=== PATIENT | female | born 1955 | race Caucasian/White ===

== ENCOUNTER 2019-04-14 06:46 | Day surgery (SDC) | payer BC, OTHER ==
[2019-04-14] MEDS ORDERED: Dextrose 5%-Lactated Ringers 1,000 ML IV SCH (07:00)
[2019-04-14] MEDS ORDERED: Glycopyrrolate 0.2 MG/ML 2 ML SDV IVPUSH ONE (09:02)
[2019-04-14] MEDS ORDERED: Midazolam 1 MG/ML 2 ML SDV ONE (09:04)
[2019-04-14] MEDS ORDERED: fentaNYL 100 MCG/2 ML SDV ONE (09:04)
[2019-04-14] MEDS ORDERED: Propofol 200 MG/20 ML SDV ONE (09:04)
--- NOTE | 2019-04-15 14:54 | OR ---
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 POSTOPERATIVE DIAGNOSES: 1. Progressive intolerance of laparoscopic adjustable gastric band associated with marked esophageal dilation and esophageal bile accumulation. 2. Mild antral gastritis. OPERATIVE PROCEDURE: Upper gastrointestinal endoscopy with antral biopsies for CLOtest. ANESTHESIA: IV sedation. INDICATION FOR PROCEDURE: The patient is status post previous laparoscopic adjustable gastric band placement. Over the past few months, perhaps more than a year, she has had progressive problems with heartburn and occasional aspiration of esophageal contents. To evaluate the situation, the patient is undergoing upper GI endoscopy with biopsies and/or dilation as indicated. Potential risks including bleeding and perforation were discussed, and the patient wishes to proceed. DETAILS OF PROCEDURE: The patient was taken to the operating room and placed in a left lateral decubitus position. IV sedation was administered, after which the upper GI endoscope was passed orally through the length of the esophagus and into the stomach with retroflexion view of the fundus, thereafter through the pyloric channel to the junction of the third and fourth portions of the duodenum. The findings included quite striking esophageal dilation. Within the esophagus, there was some pooled bile and probable salivary content. This was evacuated at this point. As one passed down toward the area of the distal esophagus, this was quite reddened and friable. As one passed into the segment of the stomach above the band imprint, this was also fairly edematous. The band imprint was present but no obstruction was noted, and the band had previously been emptied of any fluid, so there was no obstruction at this point. Within the stomach, there was some patchy redness in the prepyloric area consistent with some mild antral gastritis, and visualized portion of the pyloric channel and duodenum were unremarkable. At this point, biopsies were obtained from the antrum and sent for CLOtest for H. pylori. Minimal bleeding from the biopsy site was seen. Procedure was then concluded. The patient was taken to the recovery room in satisfactory condition. This is a case with some urgency in terms of needing to remove the band to avoid esophageal and pulmonary complications. At this point, the patient wishes to not undergo conversion to another bariatric procedure, such as gastric bypass, but simple removal of band, and we will obtain prior authorization for that procedure with the insurance carrier. Jacky Clifford MD /[id number]
== END 2019-04-14 10:35 | disposition home or self-care (01) ==
LOC: JP.SDS 06:46
PROVIDERS: ATTEND Surgery
DX: K95.09 Other complications of gastric band procedure (principal); K29.70 Gastritis, unspecified, without bleeding; K21.9 Gastro-esophageal reflux disease without esophagitis; I10 Essential (primary) hypertension; E78.5 Hyperlipidemia, unspecified; K90.9 Intestinal malabsorption, unspecified; E03.9 Hypothyroidism, unspecified; E11.9 Type 2 diabetes mellitus without complications; E66.9 Obesity, unspecified; Z68.35 Body mass index [BMI] 35.0-35.9, adult; Z79.82 Long term (current) use of aspirin; Z79.899 Other long term (current) drug therapy; Z79.84 Long term (current) use of oral hypoglycemic drugs; Z88.8 Allergy status to other drugs, medicaments and biological substances
CPT/HCPCS: 43239; 87081; J2250; J2704; J3010; J3490; J7042

== ENCOUNTER 2019-07-10 06:00 | Day surgery (SDC) | payer OTHER ==
[2019-07-10] MEDS ORDERED: Celecoxib 200 MG Cap PO ONE (06:15)
[2019-07-10] MEDS ORDERED: Scopolamine 1.5 MG Transdermal Patch TRDERM SCH (06:15)
[2019-07-10] MEDS ORDERED: Acetaminophen 500 MG Tab PO ONE (06:15)
[2019-07-10] MEDS ORDERED: Gabapentin 300 MG Cap PO ONE (06:15)
[2019-07-10] MEDS ORDERED: Dextrose 5%-Lactated Ringers 1,000 ML IV SCH ×3 (06:30→10:15)
[2019-07-10] MEDS ORDERED: Bupivacaine 0.5%/EPINEPHrine 1:200,000 50 ML MDV ONE (07:06)
[2019-07-10] MEDS ORDERED: cefOXitin 2 GM Vial ONE (07:06)
[2019-07-10] MEDS ORDERED: Rocuronium 50 MG/5 ML Vial ONE (07:09)
[2019-07-10] MEDS ORDERED: Dexamethasone 4 MG/ML SDV ONE (07:09)
[2019-07-10] MEDS ORDERED: Propofol 200 MG/20 ML SDV ONE (07:09)
[2019-07-10] MEDS ORDERED: Neostigmine Methylsulfate 1 MG/ML 5 ML Syringe ONE (07:09)
[2019-07-10] MEDS ORDERED: fentaNYL 250 MCG/5 ML SDV ONE ×2 (07:09→08:07)
[2019-07-10] MEDS ORDERED: Glycopyrrolate 0.2 MG/ML 5 ML MDV ONE (07:09)
[2019-07-10] MEDS ORDERED: Ondansetron 4 MG/2 ML SDV ONE (07:09)
[2019-07-10] MEDS ORDERED: Succinylcholine 200 MG/10 ML MDV ONE (07:09)
[2019-07-10] MEDS ORDERED: ceFAZolin 2 GM in Premix Bag 1 BAG IV ONE (07:30)
[2019-07-10] MEDS ORDERED: Ropivacaine 50 ML, dexAMETHasone 8 MG, EPINEPHrine 0.4 MG, Sodium Chloride 0.9% 27.6 ML NERVRT SCH ×4 (09:00)
[2019-07-10] MEDS ORDERED: fentaNYL 100 MCG/2 ML SDV IVPUSH ONE (09:13)
[2019-07-10] MEDS ORDERED: hydrOXYzine HCl 100 MG/2 ML SDV IM ONE (09:14)
[2019-07-10] MEDS ORDERED: Insulin Lispro 100 Unit/ML 3 ML KwikPen SUBCUT ONE (09:15)
[2019-07-10] MEDS ORDERED: Insulin Lispro 100 Unit/ML 3 ML KwikPen SUBCUT PRN (10:08)
[2019-07-10] MEDS ORDERED: SCOPOLAMINE PATCH CHECK TOP SCH (10:08)
[2019-07-10] MEDS ORDERED: HYDROmorphone 1 MG/ML Syringe IV PRN (10:08)
[2019-07-10] MEDS ORDERED: Labetalol 20 MG/4 ML Syringe IVPUSH PRN (10:08)
[2019-07-10] MEDS ORDERED: Metoclopramide 10 MG/2 ML SDV IVPUSH PRN (10:08)
[2019-07-10] MEDS ORDERED: HYDROmorphone 0.5 MG/0.5 ML Syringe IVPUSH PRN (10:08)
[2019-07-10] MEDS ORDERED: Ondansetron 4 MG/2 ML SDV IVPUSH PRN (10:08)
[2019-07-10] MEDS ORDERED: hydrOXYzine HCl 100 MG/2 ML SDV IM PRN (10:08)
[2019-07-10] MEDS ORDERED: diphenhydrAMINE 50 MG/ML SDV IVPUSH PRN (10:08)
[2019-07-10] MEDS ORDERED: MVI, Adult with Vitamin K 10 ML, Thiamine 200 MG, Chromium/Copper/Mang/Selen/Zn 1 ML in... IV SCH ×4 (12:00)
[2019-07-10] MEDS ORDERED: Pantoprazole 40 MG Vial IVPUSH SCH (12:00)
[2019-07-10] MEDS: Gabapentin 250 MG/5 ML Solution ML 470 ML Bottle PO SCH ×2 (14:44→20:35)
[2019-07-10] MEDS: Acetaminophen 325 MG Tab PO SCH ×2 (14:44→20:35)
[2019-07-10] MEDS: ceFAZolin 2 GM in Premix Bag 1 BAG IV SCH ×2 (15:59→22:40)
[2019-07-10] MEDS: Heparin Sodium 5,000 Units/ML Vial SUBCUT SCH (16:01)
[2019-07-10] MEDS: HYDROmorphone 2 MG Tab PO PRN (17:51)
[2019-07-10] MEDS ORDERED: buPROPion 150 MG Tab.SR PO SCH (21:00)
[2019-07-10] MEDS ORDERED: traZODone 50 MG Tab PO SCH (21:00)
[2019-07-11] MEDS ORDERED: Iopamidol 612 MG/ML 50 ML SDV PO STA (02:11)
--- NOTE | 2019-07-11 02:54 | CRLCR ---
HISTORY: Removal of gastric lap band. TECHNIQUE: Oral contrast was administered and 2 spot films obtained of the lower chest upper abdomen. COMPARISON: No prior. FINDINGS: No gastric lap band is seen on these images. There is no contrast extravasation or gastric obstruction. IMPRESSION: No contrast extravasation or gastric obstruction seen on these 2 views. Dictated by Santo Monique MD @ Jul 14 2019 1:41PM Signed by Dr. Santo Monique @ Jul 14 2019 1:43PM
[2019-07-11] MEDS: Acetaminophen 325 MG Tab PO SCH ×2 (02:55→07:28)
[2019-07-11] MEDS: HYDROmorphone 2 MG Tab PO PRN (02:58)
[2019-07-11] MEDS: Heparin Sodium 5,000 Units/ML Vial SUBCUT SCH (03:02)
[2019-07-11] MEDS ORDERED: Levothyroxine 100 MCG Tab PO SCH (07:30)
[2019-07-11] MEDS ORDERED: Celecoxib 200 MG Cap PO SCH (08:00)
[2019-07-11] MEDS ORDERED: Losartan 50 MG Tab PO SCH (09:00)
[2019-07-11] MEDS ORDERED: Citalopram 20 MG Tab PO SCH (09:00)
[2019-07-11] MEDS ORDERED: Ezetimibe 10 MG Tab PO SCH (09:00)
[2019-07-11] MEDS ORDERED: Aspirin 81 MG Tab.EC PO SCH (09:00)
[2019-07-11] MEDS ORDERED: Alogliptin 12.5 MG TABLET PO SCH (09:00)
[2019-07-11] MEDS ORDERED: Hydrochlorothiazide 25 MG Tab PO SCH (09:00)
[2019-07-11] MEDS ORDERED: metFORMIN 500 MG Tab PO SCH (09:00)
--- NOTE | 2019-07-12 02:12 | DISCH ---
ADMISSION DIAGNOSIS: Intolerance to laparoscopic gastric band. DISCHARGE DIAGNOSIS: Removal of laparoscopic gastric band system, partial gastrectomy for intolerance to laparoscopic gastric band. Portion of the stomach deserialized secondary to takedown of band. HISTORY: Natasha Bo is a 63-year-old female with intolerance to laparoscopic gastric band system. After preoperative evaluation and discussion of possible risks and possible complications, she wished to proceed with surgical procedure. HOSPITAL COURSE: Natasha is a 63-year-old female, who had a lap band removed on 07/10/2019. She had no operative complications and was able to be discharged to home on 07/11/2019. PHYSICAL EXAMINATION: GENERAL: Natasha is a 63-year-old female, height is 5 feet 7 inches, weight is 234 pounds, BMI 36.8. VITAL SIGNS: TPR is 95.7, 71, 18, blood pressure is 138/80. HEENT: Negative. NECK: Supple. HEART: Regular rate and rhythm. LUNGS: Clear. ABDOMEN: Dressing is dry and intact. Abdominal binder is on. EXTREMITIES: Without peripheral edema. DISPOSITION: Discharged to home. CONDITION: Stable and improving. FOLLOWUP: Followup appointment with Meron Stewart PA-C, on 07/15/2019 at 8:30 a.m. at [facility]. She will need to see her primary care provider to have her sutures removed in 10 to 12 days from today. DISCHARGE MEDICATIONS: Home medication: 1. Tylenol 650 mg oral q.6 hours p.r.n. pain. 2. Celebrex 200 mg oral daily, #14. 3. Dilaudid 2 mg every 4 hours p.r.n. pain, #42. 4. Levothyroxine 100 mcg oral before breakfast. 5. Losartan/hydrochlorothiazide 100/25 mg 1 tablet oral daily. 6. Norvasc 2.5 mg oral every evening. 7. Lipitor 80 mg oral at bedtime. 8. Wellbutrin SR 150 mg oral every 12 hours. 9. Prednisone 20 mg p.r.n. cough. 10.Aspirin 81 mg oral daily. 11.Citalopram 40 mg oral every evening. 12.Vitamin B12 one tablet oral every morning. 13.Zetia 10 mg oral every evening. DISCHARGE INSTRUCTIONS: Diet after discharge, drink 8 to 10 glasses of water a day. Full liquid diet for 2 weeks. May advance as tolerated. Activity: No lifting greater than 10 pounds for 2 weeks. Driving, do not drive for 1 week, then when off pain medication. Shower/bathing, may shower. Notify provider if any fever, increased pain, nausea, vomiting. Keep site clean and dry. Use incentive spirometer 10 times every hour while awake.
[2019-07-12] MEDS ORDERED: Cyanocobalamin (Vitamin B12) 1,000 MCG/ML SDV IM ONE (09:00)
--- NOTE | 2019-07-16 14:07 | OR ---
DATE OF PROCEDURE: 07/10/2019 SURGEON: Jacky Clifford MD PREOPERATIVE DIAGNOSIS: Intolerance to laparoscopic adjustable gastric band. POSTOPERATIVE DIAGNOSES: 1. Intolerance to laparoscopic adjustable gastric band. 2. Portion of stomach deserosalized, takedown of gastric band. OPERATIVE PROCEDURE: Diagnostic laparoscopy with: 1. Removal of laparoscopic adjustable gastric band system (34497). 2. Partial gastrectomy (71677). ANESTHESIA: General. INDICATIONS FOR PROCEDURE: This is a 63-year-old, status post laparoscopic adjustable gastric band placement, presenting with ongoing symptoms including pain around the port site and at this point wishes to have the band system removed. Potential risks of the procedure including bleeding, infection, injury to underlying viscera, problems with the symptoms persisting to some degree despite removal of the band were all reviewed with the patient, and she wishes to proceed. DETAILS OF PROCEDURE: The patient was taken to the operating room, and after general endotracheal anesthesia was induced, she was converted to a lithotomy position and the abdomen prepped and draped. At 15 cm inferior and 5 cm left of the xiphoid process, a transverse incision was made. The peritoneal cavity entered under direct vision with an Optiview trocar and inflated to 15 mmHg pressure of CO2. Laparoscope was then inserted. No underlying trocar insertion site injuries were seen. Following this, four additional trocars were placed across the upper and mid abdomen and exploration undertaken. As expected, there was copious scarring around the band. As the liver was retracted anteriorly, the band was gradually dissected free from its capsule with a combination of Harmonic scalpel and electrocautery. Once this was freed up, the band was then divided and removed from the capsule area. The port tubing was then divided obliquely such that we were able to identify the end of the port tubing to confirm that all of it had been removed and the band site itself disassembled and the two components then removed from the peritoneal cavity. During the course of the dissection, a rim of stomach which had been used to wrap around the band was deserosalized, and this area was resected with two firings of DINESH stapler and that specimen delivered from the field. At this point, no further problems were noted intra-abdominally and the area was irrigated with antibiotic-containing saline solution. Trocars were removed, the peritoneal cavity deflated, and the skin incisions closed with 4-0 Vicryl skin stitch. The port itself was then palpated and incision extended over that and continued down around the port site, which was then dissected free using electrocautery and delivered from the field. The end of the port tubing was confirmed to have been removed. The area was irrigated once again with antibiotic-containing saline solution. The incision was closed with 2 layers of 3-0 Vicryl stitch deep and a 4-0 Vicryl skin stitch. Dressing was applied. The patient was taken to the recovery room in satisfactory condition. Physician construction assistant, Meron Stewart, played an essential role in assisting in this case, helping to position the patient, retract structures as needed, as well as suturing and cutting sutures as indicated. Her presence improved patient safety and decreased the operative time. Jacky Clifford MD /[id number]
== END 2019-07-11 09:05 | disposition home or self-care (01) ==
LOC: JP.SDS 06:00 → JP.2SS 08:50 → JP.SDS 07-11 09:05
PROVIDERS: ATTEND Surgery
DX: K95.09 Other complications of gastric band procedure (principal); I10 Essential (primary) hypertension; E11.9 Type 2 diabetes mellitus without complications; E03.9 Hypothyroidism, unspecified; E78.5 Hyperlipidemia, unspecified; E53.8 Deficiency of other specified B group vitamins; E55.9 Vitamin D deficiency, unspecified; E66.01 Morbid (severe) obesity due to excess calories; K21.9 Gastro-esophageal reflux disease without esophagitis; F17.210 Nicotine dependence, cigarettes, uncomplicated; F32.9 Major depressive disorder, single episode, unspecified; K29.70 Gastritis, unspecified, without bleeding; Z68.34 Body mass index [BMI] 34.0-34.9, adult; Z88.8 Allergy status to other drugs, medicaments and biological substances; Z79.84 Long term (current) use of oral hypoglycemic drugs; Z79.899 Other long term (current) drug therapy
CPT/HCPCS: 36415; 43774; 74240; 82962; 85027; 88300; 88307; 94762; A9270; C9113; J0171; J0330; J0690; J1100; J1170; J1644; J1815; J2020; J2405; J2704; J2710; J2795; J3010; J3410; J3411; J3490; J7042; J7050; Q9967; J0694